=== PATIENT | male | born 1975 | race Two or more races ===

== ENCOUNTER 2020-05-03 17:03 | Emergency (ER) | payer MEDICAID, OTHER ==
[~2020-05-03] VITALS: Ht 177.8 cm; Wt 93.0 kg
[2020-05-03 18:50] LABS: Basophils # (auto) 0.1 10 ^3/uL (0-0.2); Basophils % (auto) 1.3 % (0.0-2.0); Eosinophils # (auto) 0.1 10 ^3/uL (0-0.8); Hematocrit 39.4 % (41.0-53.0); Hemoglobin 13.5 g/dL (13.5-17.5); Lymphocytes # (auto) 1.2 10 ^3/uL (0.4-5.4); Lymphocytes % (auto) 24.5 % (10.0-50.0); Mean Corpuscular Hemoglobin 30.7 pg (28.0-32.0); Mean Corpuscular Hgb Conc. 34.1 g/dL (32.0-36.0); Mean Corpuscular Volume 90.1 fL (80.0-100.0); Monocytes # (auto) 0.3 10 ^3/uL (0-1.3); Monocytes % (auto) 6.5 % (0.0-12.0); Neutrophils # (auto) 3.2 10 ^3/uL (1.6-8.6); Neutrophils % (auto) 66.7 % (37.0-80.0); Platelet Count (auto) 328 10^3/uL (140-450); Red Blood Cells 4.38 10^6/uL (4.5-5.90); Red Cell Distribution Width 13.6 % (11.8-14.3); White Blood Cell 4.9 10^3/uL (4.4-10.8)
[2020-05-03 19:13] LABS: Albumin 2.2 g/dL (3.4-5.0); Calcium 8.7 mg/dL (8.5-10.1)
[2020-05-03 19:21] LABS: Bilirubin, Total 0.2 mg/dL (0.2-1.0); Total Protein 6.6 g/dL (6.4-8.2)
[2020-05-03] MEDS ORDERED: SODIUM CHLORIDE 0.9% 1,000 ML IVB ONE (20:15)
[2020-05-03] MEDS ORDERED: InsuLIN REG 1unit/0.01ml Soln (100units/ml) SC ONE (21:45)
[2020-05-03 22:41] LABS: INR 0.99 (0.9-1.15); Partial Thromboplastin Time 26.2 sec (23.0-31.2)
[2020-05-04 00:47] VITALS: BP 151/96
== END 2020-05-04 02:43 | disposition still patient (30) ==
LOC: ER 17:03
DX: Z13.39 Encounter for screening examination for other mental health and behavioral disorders (principal); F33.1 Major depressive disorder, recurrent, moderate; R45.851 Suicidal ideations; E11.9 Type 2 diabetes mellitus without complications; F15.10 Other stimulant abuse, uncomplicated
CPT/HCPCS: 36415; 71045; 80053; 83735; 85025; 85610; 85730; 96360; 96361; 96372; 99285; J1815